=== PATIENT | female | born 1965 | race Caucasian/White ===

== ENCOUNTER 2025-01-05 08:54 | Outpatient (CLI) | payer BC, SELFPAY ==
--- NOTE | 2025-01-05 09:45 | P.ANES_ITS ---
Anesthesia Charges Start Date/Time Anesthesia Start Date: 01/05/25 Anesthesia Start Time: 09:21 Stop Date/Time Anesthesia Stop Date: 01/05/25 Anesthesia Stop Time: 09:42 Coding CPT Codes CPT Codes: ANES LWR INTST SCR COLSC - [id number] ([id number]) P2 - PATIENT W/MILD SYST DISEASE, QK - SLIP PRESSER 2-4 CNCRNT ANES PROC, QX - CABLE PLACER SVC W/ MD MED DIRECTION
--- NOTE | 2025-01-05 09:45 | W.ANESCHARGE ---
Anesthesia Charges Start Date/Time Anesthesia Start Date: 01/05/25 Anesthesia Start Time: 09:21 Stop Date/Time Anesthesia Stop Date: 01/05/25 Anesthesia Stop Time: 09:42 Coding CPT Codes CPT Codes: ANES LWR INTST SCR COLSC - [id number] ([id number]) P2 - PATIENT W/MILD SYST DISEASE, QK - HABILITATIVE INTERVENTIONIST 2-4 CNCRNT ANES PROC, QX - KAIAWHINA KURA KAUPAPA MAORI SVC W/ MD MED DIRECTION
--- NOTE | 2025-01-05 10:14 | P.ANES_ITS ---
Anesthesia Charges Start Date/Time Anesthesia Start Date: 01/05/25 Anesthesia Start Time: 09:21 Stop Date/Time Anesthesia Stop Date: 01/05/25 Anesthesia Stop Time: 09:42 Coding CPT Codes CPT Codes: ANES LWR INTST SCR COLSC - [id number] ([id number]) P2 - PATIENT W/MILD SYST DISEASE, QK - SECURITIES LENDING TRADER 2-4 CNCRNT ANES PROC, QX - FRONT END WHEEL LOADER OPERATOR SVC W/ MD MED DIRECTION
--- NOTE | 2025-01-05 10:14 | W.ANESCHARGE ---
Anesthesia Charges Start Date/Time Anesthesia Start Date: 01/05/25 Anesthesia Start Time: 09:21 Stop Date/Time Anesthesia Stop Date: 01/05/25 Anesthesia Stop Time: 09:42 Coding CPT Codes CPT Codes: ANES LWR INTST SCR COLSC - [id number] ([id number]) P2 - PATIENT W/MILD SYST DISEASE, QK - BATCH UNLOADER 2-4 CNCRNT ANES PROC, QX - EXERCISE PLANNER SVC W/ MD MED DIRECTION
== END 2025-01-05 08:55 | disposition home or self-care (01) ==
LOC: OP CLINIC 08:57
PROVIDERS: PCP Family Medicine; Visit Provider Internal Medicine Gastroenterology
DX: Z12.11 Encounter for screening for malignant neoplasm of colon (principal); Z80.0 Family history of malignant neoplasm of digestive organs
CPT/HCPCS: 00812; 45378; J2704